=== PATIENT | female | born 1985 | race Caucasian/White ===

== ENCOUNTER 2016-09-10 22:49 | Emergency (ER) | payer MEDICAID ==
[2016-09-10 23:01] VITALS: BP 122/78
== END 2016-09-11 00:41 | disposition home or self-care (01) ==
LOC: ED 22:49
DX: N12 Tubulo-interstitial nephritis, not specified as acute or chronic (principal); Z79.1 Long term (current) use of non-steroidal anti-inflammatories (NSAID); Z79.899 Other long term (current) drug therapy